=== PATIENT | male | born 1945 | race Caucasian/White ===

== ENCOUNTER 2019-06-06 14:50 | Inpatient (IN) | payer OTHER ==
[~2019-06-06] VITALS: Ht 180.3 cm; Wt 99.8 kg
--- NOTE | 2019-06-06 14:50 | NUR ---
PT BIBA TO BED 03.
[2019-06-06 14:54] VITALS: BP 163/64
[2019-06-06] MEDS ORDERED: NACL 0.9% 500 ML IV ONE (15:00)
--- NOTE | 2019-06-06 15:04 | NUR ---
73 Y/O MALE BIBA ALS C/O DIZZINESS AND VOMITING X 45 MIN. PT STATES HE STOOD UP TO GO TO RESTROOM AND GOT DIZZY. DENIES FALL. ABD SOFT, ROUND, TENDER TO PALP. BOWEL SOUND PRESENT X 4 QUAD. RR EVEN AND UNLABORED. PT PLACED ON MONITOR. 20G PLACED IN LT AC PRIOR TO ARRIVAL.
--- NOTE | 2019-06-06 15:19 | NUR ---
EKG AT BEDSIDE. Addendum: 06/06/19 at 1526 by MED1 AT BEDSIDE.
--- NOTE | 2019-06-06 15:25 | NUR ---
PT TAKEN TO CT VIA [facility], ACCOMPANIED BY WAITER/WAITRESS DINING CAR.
[2019-06-06 15:27] LABS: BASOPHILS % (AUTO) 0.4 % (0.0-2.0); EOSINOPHILS # (AUTO) 0.1 K/uL (0-0.4); EOSINOPHILS % (AUTO) 2.1 % (0.0-4.0); HEMATOCRIT 46.9 % (36-52); HEMOGLOBIN 15.5 g/dL (12.0-18.0); LYMPHOCYTES # (AUTO) 1.3 K/uL (2.0-11.5); MEAN CORPUSCULAR HEMOGLOBIN 31 pg (27-31); MEAN CORPUSCULAR HGB CONC 33 g/dL (33-37); MEAN CORPUSCULAR VOLUME 94.4 fL (80-94); MONOCYTES # (AUTO) 0.5 K/uL (0.8-1.0); MONOCYTES % (AUTO) 7.6 % (1.7-9.3); NEUTROPHILS # (AUTO) 4.3 K/uL (1.8-7.7); NEUTROPHILS % (AUTO) 68.9 % (42.2-75.2); PLATELET COUNT (AUTO) 203 K/uL (140-450); RED BLOOD CELL COUNT(AUTO) 4.97 MIL/uL (4.20-6.10); RED CELL DISTRIBUTION WIDTH 14.4 % (11.6-13.7); WHITE BLOOD COUNT (AUTO) 6.3 K/uL (4.8-10.8)
[2019-06-06 15:37] LABS: ANION GAP 16.8 (8-16); CARBON DIOXIDE 26.8 mmol/L (21-32); CHLORIDE 102 mmol/L (98-107); CREATININE 1.1 mg/dL (0.7-1.3); GLUCOSE 127 mg/dL (74-106); POTASSIUM 3.6 mmol/L (3.5-5.1); SODIUM SERUM 142 mmol/L (136-145); UREA NITROGEN, BLOOD 16 mg/dL (7-18)
[2019-06-06 15:42] LABS: ALBUMIN 4.2 g/dL (3.4-5.0); ASPARTATE AMINOTRANSFERASE 17 U/L (15-37); TOTAL BILIRUBIN 0.6 mg/dL (0.0-1.0)
--- NOTE | 2019-06-06 16:04 | NUR ---
PT CAN'T PROVIDE URINE AT THIS TIME.
[2019-06-06 17:05] LABS: APPEARANCE,URINE CLEAR (CLEAR); BILIRUBIN,URINE NEGATIVE (NEGATIVE); BLOOD, URINE NEGATIVE (NEGATIVE); COLOR,URINE YELLOW (YELLOW); LEUKOCYTE ESTERASE ,URINE NEGATIVE (NEGATIVE); NITRITE, URINE NEGATIVE (NEGATIVE); PH,URINE 6.5 (5.0-9.0); UGLUCOSE NEGATIVE (NEGATIVE)
[2019-06-06] MEDS ORDERED: ISOS10TA9 PO (17:34)
[2019-06-06] MEDS ORDERED: METO25TA PO (17:34)
[2019-06-06] MEDS ORDERED: METF850T PO (17:34)
[2019-06-06] MEDS ORDERED: OMEG100T PO (17:34)
[2019-06-06] MEDS ORDERED: INSU100S22 SUBQ (17:34)
[2019-06-06] MEDS ORDERED: ERGO500028 PO (17:34)
[2019-06-06] MEDS ORDERED: ASPI-1718 PO (17:34)
[2019-06-06] MEDS ORDERED: INSU-1163 SUBQ (17:34)
[2019-06-06] MEDS ORDERED: ATOR40TA PO (17:34)
[2019-06-06] MEDS ORDERED: CYAN100T65 PO (17:34)
[2019-06-06] MEDS ORDERED: FISH OIL PO (17:34)
[2019-06-06] MEDS ORDERED: ORE25 PO (17:34)
[2019-06-06] MEDS ORDERED: NACL 0.9% 1,000 ML IV SCH (17:53)
[2019-06-06] MEDS ORDERED: ACETAMINOPHEN 325 MG TAB PO PRN (17:55)
[2019-06-06] MEDS ORDERED: ONDANSETRON 4 MG/2 ML VIAL IM/IVP PRN (17:55)
[2019-06-06] MEDS ORDERED: DOCUSATE SODIUM 100 MG GELCAP PO PRN (17:55)
[2019-06-06] MEDS ORDERED: IBUPROFEN 800 MG TAB PO PRN (18:40)
[2019-06-06] MEDS ORDERED: INSULIN LISPRO SLIDING SCALE 100 UNITS/ML VIAL SUBQ PRN (18:40)
[2019-06-06] MEDS ORDERED: DEXTROSE 50% 50 ML SYR IVP PRN (18:40)
[2019-06-06] MEDS ORDERED: ISOS30TE68 PO (18:50)
[2019-06-06] MEDS ORDERED: METO25TE71 PO (18:50)
[2019-06-06 18:53] LABS: AMYLASE 91 U/L (25-115); FREE T4 (FREE THYROXINE) 0.99 ng/dL (0.76-1.46); LACTATE DEHYDROGENASE 218 U/L (85-227); LIPASE 103 U/L (73-393); MAGNESIUM 1.7 mg/dL (1.8-2.4); PHOSPHORUS 2.8 mg/dL (2.5-4.9); THYROID STIMULATING HORMONE 1.44 uIU/mL (0.34-3.74)
--- NOTE | 2019-06-06 19:07 | NUR ---
Patient will be admitted to care of DR CHONG. Admited to TELE. Will go to room 105B. Belongings list completed. Report to DONTE NAVA.
[2019-06-06 19:09] LABS: PROTHROMBIN TIME 9.3 secs (10.8-13.4)
--- NOTE | 2019-06-06 19:10 | NUR ---
ADMITTED THIS 73 YEAR OLD MALE FORM ER PER DANILO WITH CC OF NEAR SYNCOPE AND DIZZINESS, AMBULATED TO BED WITH STEADY GAIT, VITAL SIGNS STABLE, DENIES ANY CHEST PAIN OR SOB, ASSESSMENT DONE, AAOX4, ABLE TO MAKE NEEDS KNOWN, DENIES DIZZINESS AT THIS TIME, PLAN OF CARE DISCUSSED, SAFETY MEASURES IN PLACE, CALL LIGHT WITHIN REACH.
[2019-06-06 20:00] VITALS: BP_SYST 138; BP_SYST 141; BP_SYST 150; BP_DIAS 59; BP_DIAS 60; BP_DIAS 62
[2019-06-06] MEDS ORDERED: INSULIN LANTUS 100 UNITS/ML 10 ML VIAL SUBQ SCH (21:00)
[2019-06-06] MEDS ORDERED: ATORVASTATIN 20 MG TAB PO SCH (21:00)
[2019-06-06] MEDS: ISOSORBIDE MONONITRATE 30 MG TABER PO SCH (21:09)
[2019-06-06] MEDS: BLOOD GLUCOSE MONITORING 1 DEV DEV FS SCH (21:17)
--- NOTE | 2019-06-06 21:20 | NUR ---
BLOOD SUGAR CHECKED WITH 134 RESULT, SNACK PROVIDED, TOLERATED WELL, DUE MEDS ADMINISTERED WITH EDUCATION PROVIDED, ALL NEEDS ATTENDED.
--- NOTE | 2019-06-06 22:15 | NUR ---
PT AMBULATED TO TOILET WITH STEADY GAIT, VOIDED FREELY AND STATED HAD SOFT BM, DENIES ANY DIZZINESS WHILE AMBULATING, MONITORED CLOSELY.
[2019-06-06 23:32] LABS: BARBITURATE, URINE NEG. ng/ml (NEG <=200); BENZODIAZEPINE, URINE NEG. ng/mL (NEG <=200); CANNABINOID, URINE NEG. ng/mL (NEG <=50); COCAINE, URINE NEG. ng/mL (NEG <=300); OPIATE, URINE NEG. ng/mL (NEG <=2000); PHENCYCLIDINE SCREEN,URINE NEG. ng/mL (NEG <=25)
[2019-06-07] VITALS: BP 114/52
--- NOTE | 2019-06-07 | NUR ---
PT SLEEPING ON AND OFF, VITAL SIGNS STABLE, DENIES ANY DIZZINESS OR PAIN, IVF INFUSING WELL, CONTINUE TO MONITOR CLOSELY.
[2019-06-07] MEDS ORDERED: MAGNESIUM OXIDE 400 MG TAB PO ONE (01:25)
--- NOTE | 2019-06-07 03:40 | NUR ---
PT SLEEPING, EASILY AROUSABLE, VITAL SIGNS STABLE, PACED RHYTHM ON TELE, DENIES ANY PAIN OR DIZZINESS, IVF INFUSING WELL, MONITORED CLOSELY.
[2019-06-07 04:00] VITALS: BP 120/59
--- NOTE | 2019-06-07 05:52 | NUR ---
AARON LEUNG CALLED [employer] AND SPOKE TO JAMI, PER JAMI HE WILL SEND A [employer] OPERATOR TODAY AND THAT TECH WILL CALL BACK THE FLOOR REGARDING HIS ETA, WILL ENDORSE TO AM SHIFT.
--- NOTE | 2019-06-07 06:10 | NUR ---
GOT A CALL BACK FROM [facility], UPDATED ON PT'S DX AND CONDITION, HE WILL TRY TO COME SOMETIME THIS AFTERNOON DUE TO A LOT OF SCHEDULED SURGERIES TODAY, HE WILL CALL BACK AGAIN SOMETIME LATER TO UPDATE HIS ETA, WILL ENDORSE TO AM NURSE.
[2019-06-07] MEDS: BLOOD GLUCOSE MONITORING 1 DEV DEV FS SCH (06:57)
--- NOTE | 2019-06-07 07:05 | NUR ---
PT AWAKE, NO SIGNS OF DISTRESS, REPORT GIVEN TO BRANDY LEE FOR CONTINUITY OF CARE.
--- NOTE | 2019-06-07 07:20 | NUR ---
SHIFT REPORT RECEIVED FROM NUCLEAR MEDICINE MEDICAL DIRECTOR NURSE. PT IS IN BED SLEEPING AT THIS TIME. NO DISTRESS NOTED. CALL LIGHT IN REACH.
[2019-06-07 07:50] LABS: PHOSPHORUS 2.7 mg/dL (2.5-4.9)
[2019-06-07 07:55] LABS: ANION GAP 12.2 (8-16); CARBON DIOXIDE 30.4 mmol/L (21-32); CHLORIDE 106 mmol/L (98-107); GLUCOSE 133 mg/dL (74-106); POTASSIUM 4.6 mmol/L (3.5-5.1); SODIUM SERUM 144 mmol/L (136-145); UREA NITROGEN, BLOOD 13 mg/dL (7-18)
[2019-06-07 08:00] VITALS: BP 127/58
[2019-06-07 08:25] LABS: BASOPHILS % (AUTO) 0.4 % (0.0-2.0); EOSINOPHILS # (AUTO) 0.1 K/uL (0-0.4); EOSINOPHILS % (AUTO) 1.1 % (0.0-4.0); HEMATOCRIT 42.6 % (36-52); HEMOGLOBIN 14.3 g/dL (12.0-18.0); LYMPHOCYTES # (AUTO) 1.1 K/uL (2.0-11.5); LYMPHOCYTES % (AUTO) 16.7 % (20.5-51.1); MEAN CORPUSCULAR HEMOGLOBIN 31 pg (27-31); MEAN CORPUSCULAR HGB CONC 34 g/dL (33-37); MEAN CORPUSCULAR VOLUME 93.6 fL (80-94); MONOCYTES # (AUTO) 0.6 K/uL (0.8-1.0); MONOCYTES % (AUTO) 9.6 % (1.7-9.3); NEUTROPHILS # (AUTO) 4.5 K/uL (1.8-7.7); NEUTROPHILS % (AUTO) 72.2 % (42.2-75.2); PLATELET COUNT (AUTO) 186 K/uL (140-450); RED BLOOD CELL COUNT(AUTO) 4.55 MIL/uL (4.20-6.10); WHITE BLOOD COUNT (AUTO) 6.3 K/uL (4.8-10.8)
[2019-06-07] MEDS: ISOSORBIDE MONONITRATE 30 MG TABER PO SCH (08:34)
--- NOTE | 2019-06-07 08:37 | NUR ---
DISCHARGE PLANNING: RECEIVED AN ORDER TO TRANSFER PATIENT TO A CONTRACTED FACILITY TO FOLLOW UP WITH HIS VASCULAR DR. ANN AND CARDIOLOGY TEAM. CONTACTED FAWAD SANTIAGO OF [facility] AT [phone] REGARDING ORDER. SHE STATED THAT IF THIS IS NOT AN EMERGENCY, PATIENT NEED NOT BE TRANSFERRED AND IT CAN BE DONE OUT PATIENT. DR. MORRIS MADE AWARE.
--- NOTE | 2019-06-07 08:39 | NUR ---
PATIENT HAS BEEN SCREENED AND CATEGORIZED MODERATE NUTRITION RISK. PATIENT WILL BE SEEN WITHIN 3-5 DAYS OF ADMISSION. 06/09/19 06/11/[address]
[2019-06-07 08:42] LABS: CHOL/HDL RATIO 3.2 (1-4.5)
[2019-06-07] MEDS ORDERED: ERGOCALCIFEROL 50,000 IU SGL PO SCH (09:00)
[2019-06-07] MEDS ORDERED: ASPIRIN 81 MG TAB.CHEW PO SCH (09:00)
[2019-06-07] MEDS ORDERED: NON-FORMULARY ITEM (Metoprolol Succinate 25 MG) PO SCH (09:00)
[2019-06-07] MEDS ORDERED: METOPROLOL SUCCINATE 50 MG TABER PO SCH (09:00)
[2019-06-07] MEDS ORDERED: CYANOCOBALAMIN 100 MCG TAB PO SCH (09:00)
[2019-06-07] MEDS ORDERED: FISH OIL PO SCH (09:00)
[2019-06-07] MEDS ORDERED: OMEGA 3 FATTY ACIDS PO SCH (09:00)
[2019-06-07] MEDS ORDERED: INSULIN LISPRO 16 UNIT SUBQ SCH (09:00)
[2019-06-07] MEDS ORDERED: metFORMIN 850 MG TAB PO SCH (09:00)
[2019-06-07] MEDS ORDERED: HYDROCHLOROTHIAZIDE 25 MG TAB PO SCH (09:00)
--- NOTE | 2019-06-07 10:14 | NUR ---
PT IS RESTING IN BED. PT AMBULATE WITH PT. PT TOLERATED WELL. NO DISTRESS NOTED. VITAL SIGNS IN NORMAL LEVELS. CALL LIGHT IN REACH.
--- NOTE | 2019-06-07 10:30 | NUR ---
LYNDA FROM [employer] CALLED BACK. HE SAID THAT WILL STOP BY LATER TODAY AND CHECK ON THE PATIENT'S PACER. HIS CONTACT IS [phone].
--- NOTE | 2019-06-07 13:00 | NUR ---
PT WAS DISCHARGED TODAY AT 1300. PT'S DISCHARGE INSTRUCTIONS GIVEN TO PATIENT. PT WAS STABLE AT DISCHARGE. NO COMPLAINS OF PAIN. NO DISTRESS NOTED. VITAL SIGNS WITHIN NORMAL LEVELS. IV CATHETER REMOVED. NO ACTIVE BLEEDING NOTED. ID BAND REMOVED. PT WILL FOLLOW UP WITH PCP. PT'S BELONGINGS WITH PATIENT. SKIN INTACT. PT WAS TAKEN IN WHEEL CHAIR TO HIS CAR. PT AMBULATED WITH STEADY GAIT FROM WHEEL CHAIR TO CAR.
== END 2019-06-07 13:05 | disposition home or self-care (01) | DRG 74 ==
LOC: MED 14:50 → MTU 18:05
PROVIDERS: ADMIT General Practice; ATTEND General Practice
DX: G90.8 Other disorders of autonomic nervous system (principal); I25.10 Atherosclerotic heart disease of native coronary artery without angina pectoris; I10 Essential (primary) hypertension; Z96.652 Presence of left artificial knee joint; I65.21 Occlusion and stenosis of right carotid artery; E11.51 Type 2 diabetes mellitus with diabetic peripheral angiopathy without gangrene; I35.0 Nonrheumatic aortic (valve) stenosis; Z79.899 Other long term (current) drug therapy; Z79.4 Long term (current) use of insulin; Z79.84 Long term (current) use of oral hypoglycemic drugs; Z95.1 Presence of aortocoronary bypass graft; Z95.0 Presence of cardiac pacemaker; Z98.42 Cataract extraction status, left eye; Z98.41 Cataract extraction status, right eye; Z83.3 Family history of diabetes mellitus; Z80.9 Family history of malignant neoplasm, unspecified; I73.9 Peripheral vascular disease, unspecified
CPT/HCPCS: 36415; 70450; 71045; 80048; 80053; 80305; 81003; 82140; 82150; 82948; 83036; 83615; 83690; 83735; 83880; 84100; 84134; 84439; 84443; 84484; 85025; 85610; 85730; 87081; 93005; 96360; 97116; 97161-GP; 99285; G0482; J1815; J7030; Q0092